=== PATIENT | female | born 1985 | race Caucasian/White ===

== ENCOUNTER 2018-10-09 01:32 | Observation (INO) | payer MEDICAID, OTHER ==
[2018-10-09 02:37] LABS: Hematocrit 40.1 % (30.3-42.9); Hemoglobin 13.8 gm/dl (10.1-14.3); Mean Corpuscular HGB Conc 34 % (30-34); Mean Corpuscular Volume 90 fl (79-97); Red Blood Count 4.49 M/mm3 (3.65-5.03); Red Cell Distribution Width 13.9 % (13.2-15.2)
[2018-10-09 02:38] LABS: Basophils % (Auto) 0.1 % (0.0-1.8); Lymphocytes # (Auto) 0.9 K/mm3 (1.2-5.4); Lymphocytes % (Auto) 10.9 % (13.4-35.0); Monocytes # (Auto) 0.4 K/mm3 (0.0-0.8); Platelet Count 264 K/mm3 (140-440)
[2018-10-09 02:52] LABS: Bacteria,Urine 1+ /HPF (Negative); Bilirubin,Urine NEG (Negative); Blood,Urine NEG (Negative); Color,Urine Yellow (Yellow); Mucus,Urine 1+ /HPF; Protein,Urine <15 mg/dL mg/dL (Negative); Urobilinogen,Urine < 2.0 mg/dL (<2.0)
[2018-10-09 02:55] LABS: Alanine Aminotransferase 16 units/L (7-56); Albumin 4.7 g/dL (3.9-5); BUN/Creatinine Ratio 22; Blood Urea Nitrogen 11 mg/dL (7-17); Calcium 9.5 mg/dL (8.4-10.2); Hemolysis Index 5
[2018-10-09] MEDS ORDERED: NORCO 5/325 PO ONE (03:31)
[2018-10-09] MEDS ORDERED: NORCO 5/325 ONE (03:32)
[2018-10-09] MEDS ORDERED: ZOFRAN IV ONE (04:51)
[2018-10-09] MEDS ORDERED: NACL 0.9% 1000 ML 1,000 ML IV ONE (04:51)
[2018-10-09] MEDS ORDERED: ROCEPHIN/NS 1 GM/50 ML 1 GM/50 ML BAG IV ONE (04:52)
--- NOTE | 2018-10-09 07:34 | Cat Scan Report ---
CT abdomen pelvis wo con INDICATION / CLINICAL INFORMATION: abd pain. TECHNIQUE: All CT scans at this location are performed using CT dose reduction for ALARA by means of automated e xposure control. COMPARISON: None available. FINDINGS: No free fluid is seen in the abdomen. The liver, spleen, kidneys, pancreas, adrenal glands and great vessels are normal. In the pelvis, no free fluid is seen. No enlarged lymph nodes are identified. The bladder is normal. The appendix is not well visualized. No significant skeletal abnormalities identified. IMPRESSION: No acute findings. Negative CT abdomen and pelvis Signer Name: Krishna Smith MD FACElton Signed: 10/09/2018 7:30 AM Workstation Name: [email or web address]
--- NOTE | 2018-10-09 08:10 | Emergency Department Report ---
<ARNOLDO SANTILLAN - Last Filed: 10/09/18 11:05> ED Abdominal Pain HPI - General Chief Complaint: Abdominal Pain Stated Complaint: RIGHT SIDE PAIN Time Seen by Provider: 10/09/18 07:10 Source: patient Mode of arrival: Ambulatory Limitations: No Limitations - History of Present Illness Initial Comments: This is a 32-year-old female who presents to the emergency room with right sided abdominal pain that is radiating to right flank since yesterday around 1200. Past medical history of cholecystitis controlled with diet. Patient reports pain is sharp radiating pain that is intermittent. She also reported vomiting. Denies urinary frequency, urgency, dysuria, and diarrhea. MD Complaint: abdominal pain Onset/Timin -: days(s) Location: RLQ Radiation: R flank Migration to: no migration Severity: mild Severity scale (0 -10): 2 Quality: sharp Consistency: intermittent Improves With: nothing Worsens With: nothing Associated Symptoms: nausea, vomiting. denies: diarrhea, fever, chills, constipation, dysuria, hematemesis, hematochezia, melena, hematuria, anorexia, syncope Treatments Prior to Arrival: NSAIDs - Related Data LMP Date: 10/02/18 Home Medications Medication Instructions Recorded Confirmed Last Taken No Known Home Medications [No 10/09/18 10/09/18 Unknown Reported Home Medications] Allergies Allergy/AdvReac Type Severity Reaction Status Date / Time Penicillins Allergy Unknown Verified 02/14/16 01:56 ED Review of Systems Constitutional: denies: chills, fever Respiratory: denies: cough, shortness of breath, wheezing Cardiovascular: denies: chest pain, palpitations Gastrointestinal: abdominal pain, nausea, vomiting. denies: diarrhea Genitourinary: denies: urgency, dysuria, discharge Musculoskeletal: denies: back pain, joint swelling, arthralgia Skin: denies: rash, lesions Neurological: denies: headache, weakness, paresthesias Psychiatric: denies: anxiety, depression ED Past Medical Hx - Past Medical History Previous Medical History?: Yes Hx Hypertension: No Hx Congestive Heart Failure: No Hx Diabetes: No Hx Deep Vein Thrombosis: No Hx Renal Disease: Yes (hx cholecystitis) Hx Sickle Cell Disease: No Hx Seizures: No Hx Asthma: No Hx COPD: No Hx HIV: No Additional medical history: hx cholecystitis - Surgical History Past Surgical History?: No - Social History Smoking Status: Current Some Day Smoker - Medications Home Medications: Home Medications Medication Instructions Recorded Confirmed Last Taken Type No Known Home Medications [No 10/09/18 10/09/18 Unknown History Reported Home Medications] ED Physical Exam - General Limitations: No Limitations General appearance: alert, in no apparent distress - Respiratory Respiratory exam: Present: normal lung sounds bilaterally. Absent: respiratory distress - Cardiovascular Cardiovascular Exam: Present: regular rate, normal rhythm. Absent: systolic murmur, diastolic murmur, rubs, gallop - GI/Abdominal GI/Abdominal exam: Present: soft, tenderness (RLQ), normal bowel sounds. Absent: distended, guarding, rebound, rigid - Back Exam Back exam: Absent: CVA tenderness (R), CVA tenderness (L) - Neurological Exam Neurological exam: Present: alert, oriented X3 - Psychiatric Psychiatric exam: Present: normal affect, normal mood - Skin Skin exam: Present: warm, dry, intact, normal color. Absent: rash ED Course - Reevaluation(s) Reevaluation #1: 10/09/18 10:[address] Mathur who suggest consult hospitalist for admission. Obtained CT of Abdomen and pelvis with contrast with findings of possible acute cholecystitis. Paged Dr. Sheikh with general surgery for admission. 10/09/18 10:24 Reevaluation #2: 10/09/18 11:[address] Lopez who agreed to admission under Medical Surgical. Advised to order zosyn and Dilaudid. ED Medical Decision Making - Lab Data Result diagrams: 10/09/18 02:00 10/09/18 02:00 Lab Results 10/09/18 10/09/18 10/09/18 Range/Units 02:00 02:00 02:00 WBC 8.0 (4.5-11.0) K/mm3 RBC 4.49 (3.65-5.03) M/mm3 Hgb 13.8 (10.1-14.3) gm/dl Hct 40.1 (30.3-42.9) % MCV 90 (79-97) fl MCH 31 (28-32) pg MCHC 34 (30-34) % RDW 13.9 (13.2-15.2) % Plt Count 264 (140-440) K/mm3 Lymph % (Auto) 10.9 L (13.4-35.0) % [place] % (Auto) 5.0 (0.0-7.3) % Eos % (Auto) 0.0 (0.0-4.3) % Baso % (Auto) 0.1 (0.0-1.8) % Lymph # 0.9 L (1.2-5.4) K/mm3 [place] # 0.4 (0.0-0.8) K/mm3 Eos # 0.0 (0.0-0.4) K/mm3 Baso # 0.0 (0.0-0.1) K/mm3 Seg Neutrophils % 84.0 H (40.0-70.0) % Seg Neutrophils # 6.8 (1.8-7.7) K/mm3 Sodium 137 (137-145) mmol/L Potassium 4.5 (3.6-5.0) mmol/L Chloride 101.9 (98-107) mmol/L Carbon Dioxide 27 (22-30) mmol/L Anion Gap 13 mmol/L BUN 11 (7-17) mg/dL Creatinine 0.5 L (0.7-1.2) mg/dL Estimated GFR > 60 ml/min BUN/Creatinine Ratio 22 % Glucose 132 H (65-100) mg/dL Calcium 9.5 (8.4-10.2) mg/dL Total Bilirubin 1.30 H (0.1-1.2) mg/dL AST 26 (5-40) units/L ALT 16 (7-56) units/L Alkaline Phosphatase 88 (35-129) units/L Total Protein 8.0 (6.3-8.2) g/dL Albumin 4.7 (3.9-5) g/dL Albumin/Globulin Ratio 1.4 % Lipase 1335 H (13-60) units/L HCG, Qual Negative (Negative) Urine Color (Yellow) Urine Turbidity (Clear) Urine pH (5.0-7.0) Ur Specific [place] (1.003-1.030) Urine Protein (Negative) mg/dL Urine Glucose (UA) (Negative) mg/dL Urine Ketones (Negative) mg/dL Urine Blood (Negative) Urine Nitrite (Negative) Urine Bilirubin (Negative) Urine Urobilinogen (<2.0) mg/dL Ur Leukocyte Esterase (Negative) Urine WBC (Auto) (0.0-6.0) /HPF Urine RBC (Auto) (0.0-6.0) /HPF U Epithel Cells (Auto) (0-13.0) /HPF Urine Bacteria (Auto) (Negative) /HPF Urine Mucus /HPF 10/09/18 Range/Units Unknown WBC (4.5-11.0) K/mm3 RBC (3.65-5.03) M/mm3 Hgb (10.1-14.3) gm/dl Hct (30.3-42.9) % MCV (79-97) fl MCH (28-32) pg MCHC (30-34) % RDW (13.2-15.2) % Plt Count (140-440) K/mm3 Lymph % (Auto) (13.4-35.0) % [place] % (Auto) (0.0-7.3) % Eos % (Auto) (0.0-4.3) % Baso % (Auto) (0.0-1.8) % Lymph # (1.2-5.4) K/mm3 [place] # (0.0-0.8) K/mm3 Eos # (0.0-0.4) K/mm3 Baso # (0.0-0.1) K/mm3 Seg Neutrophils % (40.0-70.0) % Seg Neutrophils # (1.8-7.7) K/mm3 Sodium (137-145) mmol/L Potassium (3.6-5.0) mmol/L Chloride (98-107) mmol/L Carbon Dioxide (22-30) mmol/L Anion Gap mmol/L BUN (7-17) mg/dL Creatinine (0.7-1.2) mg/dL Estimated GFR ml/min BUN/Creatinine Ratio % Glucose (65-100) mg/dL Calcium (8.4-10.2) mg/dL Total Bilirubin (0.1-1.2) mg/dL AST (5-40) units/L ALT (7-56) units/L Alkaline Phosphatase (35-129) units/L Total Protein (6.3-8.2) g/dL Albumin (3.9-5) g/dL Albumin/Globulin Ratio % Lipase (13-60) units/L HCG, Qual (Negative) Urine Color Yellow (Yellow) Urine Turbidity Slightly-cloudy (Clear) Urine pH 6.0 (5.0-7.0) Ur Specific [place] 1.028 (1.003-1.030) Urine Protein <15 mg/dl (Negative) mg/dL Urine Glucose (UA) Neg (Negative) mg/dL Urine Ketones 80 (Negative) mg/dL Urine Blood Neg (Negative) Urine Nitrite Neg (Negative) Urine Bilirubin Neg (Negative) Urine Urobilinogen < 2.0 (<2.0) mg/dL Ur Leukocyte Esterase Lg (Negative) Urine WBC (Auto) 19.0 H (0.0-6.0) /HPF Urine RBC (Auto) 3.0 (0.0-6.0) /HPF U Epithel Cells (Auto) 6.0 (0-13.0) /HPF Urine Bacteria (Auto) 1+ (Negative) /HPF Urine Mucus 1+ /HPF - Radiology Data Radiology results: report reviewed CT abdomen pelvis wo con INDICATION / CLINICAL INFORMATION: abd pain. TECHNIQUE: All CT scans at this location are performed using CT dose reduction for [place] by means of automated exposure control. COMPARISON: None available. FINDINGS: No free fluid is seen in the abdomen. The liver, spleen, kidneys, pancreas, adrenal glands and great vessels are normal. In the pelvis, no free fluid is seen. No enlarged lymph nodes are identified. The bladder is normal. The appendix is not well visualized. No significant skeletal abnormalities identified. IMPRESSION: No acute findings. Negative CT abdomen and pelvis CT ABDOMEN AND PELVIS WITH CONTRAST HISTORY: Abdominal pain. COMPARISON: A same-day CT abdomen and pelvis without contrast TECHNIQUE: Routine abdominal and pelvic CT exam performed following intravenous contrast administration. All CT scans at this location are performed using CT dose reduction for ALARA by means of automated exposure control. CONTRAST: 100 mL Omnipaque 300. Consent was obtained prior to the administration of the contrast. FINDINGS: CT ABDOMEN: Lung Bases: Clear. Liver: Normal. Biliary: The gallbladder is distended with a 3 mm thick wall and moderate pericholecystic fluid. There is a questionable 6 mm radiopaque calculus near the neck of the gallbladder. Intrahepatic bile ducts are normal. However, the common bile duct measures 8 mm in the maame hepatis. No evidence of choledocholithiasis. Spleen: No significant abnormality. Unenlarged. Pancreas: Bulky pancreas with enlargement of the body and mild peripancreatic stranding. Mild peripancreatic fluid. No pancreatic pseudocyst or calcifications. The pancreatic duct is nondilated. Adrenals: Normal. Kidneys: Normal. Lymphatics: No lymphadenopathy. Vasculature: Normal. Bowel/Peritoneum: No significant abnormality. No free air. No free fluid. Normal appendix measuring [address] PELVIC: : Normal uterus and ovaries. A 1.7 cm dominant follicle of the right ovary. Mild physiologic free pelvic fluid. Osseous Structures: No significant abnormality. Additional Findings: None IMPRESSION: 1. Possible 6 mm gallbladder calculus and additional findings in the gallbladder suggesting possible acute cholecystitis. 2. Changes in the pancreas suggest acute pancreatitis with no complication. 3. No appendicitis. 4. Normal pelvis with a 1.7 cm dominant follicle of the right ovary. - Medical Decision Making This patient was seen by this provider. Obtained labs and CT of abdomen and pelvis. Lipase 1335 and bilirubin elevated. All of the labs are unremarkable. 1. Possible 6 mm gallbladder calculus and additional findings in the gallbladder suggesting possible acute cholecystitis. 2. Changes in the pancreas suggest acute pancreatitis with no complication. 3. No appendicitis. 4. Normal pelvis with a 1.7 cm dominant follicle of the right ovary. Dr. Sheikh from general surgery agreed to admit patient for surgery under general medicine. Spoke with Dr. Lopez who is in agreement with admission to Medical Surgial. ED Disposition Clinical Impression: Right sided abdominal pain, Right flank pain, Acute cholecystitis Vomiting alone Qualifiers: Vomiting type: unspecified Vomiting Intractability: non-intractable Qualified Code(s): R11.11 - Vomiting without nausea Disposition: -09 OP ADMIT IP TO THIS HOSP Is pt being admited?: Yes Condition: Stable <DOTTIE MATHUR - Last Filed: 10/09/18 15:46> ED Review of Systems ROS: Stated complaint: RIGHT SIDE PAIN Other details as noted in HPI ED Course Vital Signs 10/09/18 10/09/18 10/09/18 01:50 08:27 11:42 Temperature 98.4 F 98.4 F Pulse Rate 71 52 L 63 Respiratory 16 16 20 Rate Blood Pressure 121/70 100/47 107/55 [Left] O2 Sat by Pulse 100 100 100 Oximetry 10/09/18 13:00 Temperature Pulse Rate Respiratory 19 Rate Blood Pressure [Left] O2 Sat by Pulse 99 Oximetry - Reevaluation(s) Reevaluation #3: 10/09/18 11:49 Patient found to have pancreatitis, likely secondary to gallstone cholecystitis. Patient was presented to me after initial laboratory studies resulted, and noncontrast CT scan of the abdomen and pelvis resulted. A contrast-enhanced CT scan was ordered, and shows cholecystitis, and probable pancreatitis. Agree with plan for admission, pain control, antibiotics. Please note that ceftriaxone was ordered without specifically consulting me. I'll defer to the inpatient team to further manage inpatient antibiotics. Gen. surgery has been consulted. Laboratory studies, and imaging studies are reviewed. Nurse practitioner Marko to admit patient to the medical team. On my examination, there is no abdominal tenderness at this time. Explained significance of laboratory studies and CT scan findings to patient, who has verbalized understanding. She declines pain medication at this time. 10/09/18 11 ED Medical Decision Making - Lab Data Result diagrams: 10/09/18 02:00 10/09/18 02:00 - Radiology Data Radiology results: report reviewed, image reviewed Critical care attestation.: If time is entered above; I have spent that time in minutes in the direct care of this critically ill patient, excluding procedure time. ED Disposition Is pt being admited?: Yes
--- NOTE | 2018-10-09 10:03 | Cat Scan Report ---
CT ABDOMEN AND PELVIS WITH CONTRAST HISTORY: Abdominal pain. COMPARISON: A same-day CT abdomen and pelvis without contrast TECHNIQUE: Routine abdominal and pelvic CT exam performed following intravenous contrast administrat ion. All CT scans at this location are performed using CT dose reduction for ALARA by means of automated e xposure control. CONTRAST: 100 mL Omnipaque 300. Consent was obtained prior to the administration of the contrast. FINDINGS: CT ABDOMEN: Lung Bases: Clear. Liver: Normal. Biliary: The gallbladder is distended with a 3 mm thick wall and moderate pericholecystic fluid. Ther e is a questionable 6 mm radiopaque calculus near the neck of the gallbladder. Intrahepatic bile duct s are normal. However, the common bile duct measures 8 mm in the maame hepatis. No evidence of choled ocholithiasis. Spleen: No significant abnormality. Unenlarged. Pancreas: Bulky pancreas with enlargement of the body and mild peripancreatic stranding. Mild peripan creatic fluid. No pancreatic pseudocyst or calcifications. The pancreatic duct is nondilated. Adrenals: Normal. Kidneys: Normal. Lymphatics: No lymphadenopathy. Vasculature: Normal. Bowel/Peritoneum: No significant abnormality. No free air. No free fluid. Normal appendix measuring [address] PELVIC: : Normal uterus and ovaries. A 1.7 cm dominant follicle of the right ovary. Mild physiologic free p elvic fluid. Osseous Structures: No significant abnormality. Additional Findings: None IMPRESSION: 1. Possible 6 mm gallbladder calculus and additional findings in the gallbladder suggesting possible acute cholecystitis. 2. Changes in the pancreas suggest acute pancreatitis with no complication. 3. No appendicitis. 4. Normal pelvis with a 1.7 cm dominant follicle of the right ovary. Signer Name: Terry Matson MD Signed: 10/09/2018 9:59 AM Workstation Name: [id number]
[2018-10-09] MEDS ORDERED: LEVAQUIN PO ONE (10:56)
[2018-10-09] MEDS ORDERED: FLAGYL 500 MG/100 ML 500 MG/100 ML BAG IV ONE (10:56)
--- NOTE | 2018-10-09 11:38 | Consultation ---
History of Present Illness Consult date: 10/09/18 Reason for consult: gallstones Chief complaint: abdominal pain, n/v - History of present illness History of present illness: 32 yo F with hx of gallstones presents to ER with one day hx of RUQ abdominal pa in radiating to the back. She had pain like this 10 years ago and was told it was gallstones. She has since managed this with diet. Yesterday she had breakfast and soon after starting having abdominal pain. Sharp, severe. Associated with n/v. No f/c. Her pain is subsiding now. Past History Past Medical History: other (gallstones) Past Surgical History: No surgical history Social history: no significant social history Family history: no significant family history Medications and Allergies Allergies Allergy/AdvReac Type Severity Reaction Status Date / Time Penicillins Allergy Unknown Verified 02/14/16 01:56 Home Medications Medication Instructions Recorded Confirmed Last Taken Type Ibuprofen [Motrin 600 MG tab] 600 mg PO Q8H PRN #30 tablet 12/01/14 02/14/16 Unknown Rx Multivitamin/Iron/Folic Acid [One 1 each PO DAILY #60 tablet 12/01/14 02/14/16 02/13/16 Rx Daily Multivitamin-Iron Tb] Acetaminophen/Codeine [Tylenol #3] 1 tab PO Q4HR PRN #30 tablet 02/15/16 Unknown Rx Ibuprofen [Motrin 600 MG tab] 600 mg PO Q6H PRN #30 tablet 02/15/16 Unknown Rx Active Meds: Active Medications Sodium Chloride (Nacl 0.9% 1000 Ml) 1,000 mls @ 150 mls/hr IV DIRECT CHARU Review of Systems All systems: negative (10 pt ROS performed and negative except for that listed in HPI) Exam Vital Signs Temp Pulse Resp BP Pulse Ox 98.4 F 71 16 121/70 100 10/09/18 01:50 10/09/18 01:50 10/09/18 01:50 10/09/18 01:50 10/09/18 01:50 Narrative exam: Gen: AAOx3. NAD ENT: no scleral icterus or conjunctival pallor CV; s1, S2+ Resp: even and unlabored Abd: soft, ND, mild RUQ TTP. no r/r/g Ext: no c/c/e Results - Labs 10/09/18 02:00 10/09/18 02:00 Abnormal lab results 10/09/18 10/09/18 10/09/18 Range/Units 02:00 02:00 Unknown Lymph % (Auto) 10.9 L (13.4-35.0) % Lymph # 0.9 L (1.2-5.4) K/mm3 Seg Neutrophils % 84.0 H (40.0-70.0) % Creatinine 0.5 L (0.7-1.2) mg/dL Glucose 132 H (65-100) mg/dL Total Bilirubin 1.30 H (0.1-1.2) mg/dL Lipase 1335 H (13-60) units/L Urine WBC (Auto) 19.0 H (0.0-6.0) /HPF Diabetes panel 10/09/18 Range/Units 02:00 Sodium 137 (137-145) mmol/L Potassium 4.5 (3.6-5.0) mmol/L Chloride 101.9 (98-107) mmol/L Carbon Dioxide 27 (22-30) mmol/L BUN 11 (7-17) mg/dL Creatinine 0.5 L (0.7-1.2) mg/dL Glucose 132 H (65-100) mg/dL Calcium 9.5 (8.4-10.2) mg/dL AST 26 (5-40) units/L ALT 16 (7-56) units/L Alkaline Phosphatase 88 (35-129) units/L Total Protein 8.0 (6.3-8.2) g/dL Albumin 4.7 (3.9-5) g/dL Calcium panel 10/09/18 Range/Units 02:00 Calcium 9.5 (8.4-10.2) mg/dL Albumin 4.7 (3.9-5) g/dL Pituitary panel 10/09/18 Range/Units 02:00 Sodium 137 (137-145) mmol/L Potassium 4.5 (3.6-5.0) mmol/L Chloride 101.9 (98-107) mmol/L Carbon Dioxide 27 (22-30) mmol/L BUN 11 (7-17) mg/dL Creatinine 0.5 L (0.7-1.2) mg/dL Glucose 132 H (65-100) mg/dL Calcium 9.5 (8.4-10.2) mg/dL Adrenal panel 10/09/18 Range/Units 02:00 Sodium 137 (137-145) mmol/L Potassium 4.5 (3.6-5.0) mmol/L Chloride 101.9 (98-107) mmol/L Carbon Dioxide 27 (22-30) mmol/L BUN 11 (7-17) mg/dL Creatinine 0.5 L (0.7-1.2) mg/dL Glucose 132 H (65-100) mg/dL Calcium 9.5 (8.4-10.2) mg/dL Total Bilirubin 1.30 H (0.1-1.2) mg/dL AST 26 (5-40) units/L ALT 16 (7-56) units/L Alkaline Phosphatase 88 (35-129) units/L Total Protein 8.0 (6.3-8.2) g/dL Albumin 4.7 (3.9-5) g/dL - Imaging CT scan - abdomen: report reviewed, image reviewed CT scan - pelvis: report reviewed, image reviewed US - abdomen: report reviewed Assessment and Plan 32 yo F with 1. acute cholecystitis 2. dilated CBD 3. gallstone pancreatitis 4. hyperbilirubinemia CT scan A/p and RUQ u/s with acute cholecystitis with dilated CBD, pancreatitis Plan: Admit to hospitalist service 1. NPO 2. IVF - NS@150cc/hr 3. MRCP for dilated CBD, r/o choledocolithiasis 4. prn pain control 5. repeat LFTs, lipase in am 6. IV abx 7. Recommend cholecystectomy prior to discharge once lipase improves and w/u is complete. I explained test results and recommendations to the patient. She does not want to stay in the hospital because she has small children at home. I asked her to stay at least til tomorrow to recheck labs to ensure pancreatitis is getting better. I also spoke with her Tarik over telephone and explained plan to him at patient's request. Will follow up in am. Thank you, please call with questions
--- NOTE | 2018-10-09 11:39 | Ultrasound Report ---
LIMITED RUQ ABDOMINAL ULTRASOUND INDICATION: Right upper quadrant abdominal pain. COMPARISON: No relevant prior imaging study available. FINDINGS: Pancreas: Visualized portions show no significant abnormality. Abdominal Aorta: No significant abnormality. IVC: No significant abnormality. Liver: No significant abnormality. Normal hepatopedal blood flow in the main portal vein. Gallbladder: The gallbladder is borderline dilated. There is moderate sludge and a few shadowing gall stones within the gallbladder. There is moderate gallbladder wall thickening measuring 4.1 mm. Small pericholecystic fluid is also identified. Bile ducts: No significant abnormality. Common bile duct measures 7.5 mm. Right kidney: No significant abnormality visualized.. Free fluid: None. Additional Findings: None. IMPRESSION: Cholelithiasis with findings suggestive of acute cholecystitis. The common bile duct is mildly dilated measuring 7.5 mm. Choledocholithiasis cannot be excluded. Signer Name: Yefri Morel Jr, MD Signed: 10/09/2018 11:35 AM Workstation Name: [id number]
--- NOTE | 2018-10-09 14:31 | Magnetic Resonance Report ---
MR ABDOMEN MRCP HISTORY: Gallstone pancreatitis, dilated common bile duct on ultrasound, abdominal pain on right side . TECHNIQUE: Coronal T2 images. Axial T2 fat-sat images. Thin and thick slab MRCP images. Radial MRCP i mages. Reconstructions of the biliary tree. COMPARISON: CT abdomen pelvis with contrast and right upper quadrant ultrasound performed 10/09/2018. FINDINGS: The sequences are slightly limited by patient motion artifact. The gallbladder is borderline dilated and contains multiple small gallstones. One of the small stones appears to be within the cystic duct. There is moderate gallbladder wall edema/thickening measuring up to 6 mm on MR. The MRCP images demonstrate an abrupt transition in the distal common bile duct con sistent with mildly obstructing sludge or nonvisualized stone. The CBD measures 6 mm on the MRCP imag es. No intrahepatic biliary dilatation is appreciated. Signal characteristics of the liver, pancreas, spleen, kidneys, adrenal glands, aorta and visualized bowel loops are within normal limits. No evidence for ascites, focal inflammation or bulky adenopathy . IMPRESSION: Cholelithiasis. Findings suspicious for acute cholecystitis. There is a abrupt change in caliber of the distal common bile duct consistent with choledocholithiasi s. See above. Signer Name: Yefri Morel Jr, MD Signed: 10/09/2018 2:26 PM Workstation Name: [id number]
[2018-10-09] MEDS: NACL 0.9% 1000 ML 1,000 ML IV SCH ×2 (14:45→23:02)
--- NOTE | 2018-10-09 17:22 | Event Note ---
Date: 10/09/18 MRCP positive for choledocolithiasis - consult placed to GI
[2018-10-09] MEDS ORDERED: DILAUDID IV PRN (21:00)
[2018-10-09] MEDS ORDERED: SODIUM CHLORIDE FLUSH SYRINGE 10 ML IV PRN (21:00)
[2018-10-09] MEDS ORDERED: ZOFRAN IV PRN (21:00)
[2018-10-09] MEDS ORDERED: TYLENOL PO PRN (21:00)
--- NOTE | 2018-10-09 21:00 | History and Physical Report ---
History of Present Illness Date of examination: 10/09/18 Date of admission: 10/09/18 11:11 Chief complaint: Ruq pain for 1 day History of present illness: 32-year-old female who presents to the emergency room with right sided abdominal pain that is radiating to right flank since yesterday around 1200. Past medical history of cholecystitis controlled with diet. Patient reports pain is sharp radiating pain that is intermittent. Pain is 10/10. She also re ported vomiting. Denies urinary frequency, urgency, dysuria, and diarrhea.No fever or chills Past History Past Medical History: other (gallstones) Past Surgical History: No surgical history Social history: no significant social history Family history: no significant family history Medications and Allergies Allergies Allergy/AdvReac Type Severity Reaction Status Date / Time Penicillins Allergy Unknown Verified 02/14/16 01:56 Home Medications Medication Instructions Recorded Confirmed Last Taken Type No Known Home Medications [No 10/09/18 10/09/18 Unknown History Reported Home Medications] Active Meds: Active Medications Sodium Chloride (Nacl 0.9% 1000 Ml) 1,000 mls @ 150 mls/hr IV DIRECT CHARU Last Admin: 10/09/18 14:45 Dose: 150 mls/hr Documented by: Review of Systems All systems: negative Gastrointestinal: abdominal pain (RUQ for 1 day), nausea, vomiting (x2) Exam - Constitutional Vitals: Temp Pulse Resp BP Pulse Ox 98.1 F 53 L 14 92/54 100 10/09/18 17:07 10/09/18 17:07 10/09/18 17:07 10/09/18 17:07 10/09/18 17:07 General appearance: Present: no acute distress, well-nourished - EENT Eyes: Present: PERRL ENT: hearing intact, clear oral mucosa - Neck Neck: Present: supple, normal ROM - Respiratory Respiratory effort: normal Respiratory: bilateral: CTA - Cardiovascular Heart rate: 76 Rhythm: regular Heart Sounds: Present: S1 & S2. Absent: rub, click - Extremities Extremities: pulses symmetrical, No edema Peripheral Pulses: within normal limits - Abdominal General gastrointestinal: Present: soft, tender, non-distended, normal bowel sounds Localized gastrointestinal: tender: RUQ, guarding: RUQ Female genitourinary: Present: normal - Rectal Rectal Exam: deferred - Integumentary Integumentary: Present: clear, warm, dry - Musculoskeletal Musculoskeletal: gait normal, strength equal bilaterally - Psychiatric Psychiatric: appropriate mood/affect, intact judgment & insight - Neurologic Neurologic: CNII-XII intact, moves all extremities - Allied Health Allied health notes reviewed: nursing Results - Labs CBC & Chem 7: 10/09/18 02:00 10/09/18 02:00 Labs: Laboratory Last Values WBC 8.0 K/mm3 (4.5-11.0) 10/09/18 02:00 RBC 4.49 M/mm3 (3.65-5.03) 10/09/18 02:00 Hgb 13.8 gm/dl (10.1-14.3) 10/09/18 02:00 Hct 40.1 % (30.3-42.9) 10/09/18 02:00 MCV 90 fl (79-97) 10/09/18 02:00 MCH 31 pg (28-32) 10/09/18 02:00 MCHC 34 % (30-34) 10/09/18 02:00 RDW 13.9 % (13.2-15.2) 10/09/18 02:00 Plt Count 264 K/mm3 (140-440) 10/09/18 02:00 Lymph % (Auto) 10.9 % (13.4-35.0) L 10/09/18 02:00 [place] % (Auto) 5.0 % (0.0-7.3) 10/09/18 02:00 Eos % (Auto) 0.0 % (0.0-4.3) 10/09/18 02:00 Baso % (Auto) 0.1 % (0.0-1.8) 10/09/18 02:00 Lymph # 0.9 K/mm3 (1.2-5.4) L 10/09/18 02:00 [place] # 0.4 K/mm3 (0.0-0.8) 10/09/18 02:00 Eos # 0.0 K/mm3 (0.0-0.4) 10/09/18 02:00 Baso # 0.0 K/mm3 (0.0-0.1) 10/09/18 02:00 Seg Neutrophils % 84.0 % (40.0-70.0) H 10/09/18 02:00 Seg Neutrophils # 6.8 K/mm3 (1.8-7.7) 10/09/18 02:00 Sodium 137 mmol/L (137-145) 10/09/18 02:00 Potassium 4.5 mmol/L (3.6-5.0) 10/09/18 02:00 Chloride 101.9 mmol/L (98-107) 10/09/18 02:00 Carbon Dioxide 27 mmol/L (22-30) 10/09/18 02:00 13 mmol/L 10/09/18 02:00 BUN 11 mg/dL (7-17) 10/09/18 02:00 0.5 mg/dL (0.7-1.2) L 10/09/18 02:00 Estimated GFR > 60 ml/min 10/09/18 02:00 22 % 10/09/18 02:00 Glucose 132 mg/dL (65-100) H 10/09/18 02:00 Calcium 9.5 mg/dL (8.4-10.2) 10/09/18 02:00 1.30 mg/dL (0.1-1.2) H 10/09/18 02:00 AST 26 units/L (5-40) 10/09/18 02:00 ALT 16 units/L (7-56) 10/09/18 02:00 88 units/L (35-129) 10/09/18 02:00 8.0 g/dL (6.3-8.2) 10/09/18 02:00 4.7 g/dL (3.9-5) 10/09/18 02:00 1.4 % 10/09/18 02:00 1335 units/L (13-60) H 10/09/18 02:00 HCG, Qual Negative (Negative) 10/09/18 02:00 Yellow (Yellow) 10/09/18 Unknown Slightly-cloudy (Clear) 10/09/18 Unknown 6.0 (5.0-7.0) 10/09/18 Unknown Ur Specific [place] 1.028 (1.003-1.030) 10/09/18 Unknown <15 mg/dl mg/dL (Negative) 10/09/18 Unknown Neg mg/dL (Negative) 10/09/18 Unknown 80 mg/dL (Negative) 10/09/18 Unknown Neg (Negative) 10/09/18 Unknown Neg (Negative) 10/09/18 Unknown Neg (Negative) 10/09/18 Unknown < 2.0 mg/dL (<2.0) 10/09/18 Unknown Ur Leukocyte Esterase Lg (Negative) 10/09/18 Unknown 19.0 /HPF (0.0-6.0) H 10/09/18 Unknown 3.0 /HPF (0.0-6.0) 10/09/18 Unknown U Epithel Cells (Auto) 6.0 /HPF (0-13.0) 10/09/18 Unknown 1+ /HPF (Negative) 10/09/18 Unknown 1+ /HPF 10/09/18 Unknown - Imaging and Cardiology CT scan - abdomen: report reviewed Imaging and Cardiology: CT abd IMPRESSION: 1. Possible 6 mm gallbladder calculus and additional findings in the gallbladder suggesting possible acute cholecystitis. 2. Changes in the pancreas suggest acute pancreatitis with no complication. 3. No appendicitis. 4. Normal pelvis with a 1.7 cm dominant follicle of the right ovary. Signer Name: Terry Matson MD MRCP IMPRESSION: Cholelithiasis. Findings suspicious for acute cholecystitis. There is a abrupt change in caliber of the distal common bile duct consistent with choledocholithiasis. See above. Assessment and Plan Advance Directives: Yes (Full code) VTE prophylaxis?: Mechanical Plan of care discussed with patient/family: Yes - Patient Problems (1) Acute cholecystitis Current Visit: Yes Status: Acute Plan to address problem: Surgery consulted Empiric abx with IV Zosyn (2) Choledocholithiasis Current Visit: Yes Status: Acute Plan to address problem: On MRCP GI consulted (3) DVT prophylaxis Current Visit: Yes Status: Acute Plan to address problem: On Scd's and GI prophylaxis
[2018-10-09] MEDS: SODIUM CHLORIDE FLUSH SYRINGE 10 ML IV SCH (22:59)
[2018-10-09] MEDS: PEPCID IV SCH (22:59)
[2018-10-09] MEDS: ZOSYN/NS 4.5GM/100ML 4.5 GM/100 ML VIAL IV SCH (23:27)
[2018-10-10] MEDS: NACL 0.9% 1000 ML 1,000 ML IV SCH ×2 (05:43→14:04)
[2018-10-10] MEDS: ZOSYN/NS 4.5GM/100ML 4.5 GM/100 ML VIAL IV SCH ×2 (06:37→14:04)
[2018-10-10] MEDS: PEPCID IV SCH ×2 (09:11→22:10)
[2018-10-10] MEDS: SODIUM CHLORIDE FLUSH SYRINGE 10 ML IV SCH ×2 (09:12→22:10)
[2018-10-10 09:32] LABS: Basophils % (Auto) 0.2 % (0.0-1.8); Hematocrit 36.8 % (30.3-42.9); Hemoglobin 12.2 gm/dl (10.1-14.3); Lymphocytes # (Auto) 0.6 K/mm3 (1.2-5.4); Mean Corpuscular HGB Conc 33 % (30-34); Mean Corpuscular Volume 92 fl (79-97); Monocytes # (Auto) 0.2 K/mm3 (0.0-0.8); Monocytes % (Auto) 2.1 % (0.0-7.3); Platelet Count 203 K/mm3 (140-440); Red Blood Count 4.01 M/mm3 (3.65-5.03); Red Cell Distribution Width 14.6 % (13.2-15.2)
[2018-10-10 10:08] LABS: Alanine Aminotransferase 9 units/L (7-56); Albumin 3.6 g/dL (3.9-5); BUN/Creatinine Ratio 25; Blood Urea Nitrogen 15 mg/dL (7-17); Calcium 8.2 mg/dL (8.4-10.2); Hemolysis Index 45
--- NOTE | 2018-10-10 11:18 | Consultation ---
History of Present Illness - Reason for Consult Consult date: 10/10/18 Pancreatitis Requesting physician: BRIANNA RINCON - History of Present Illness Mrs. Gilman is a 32-year-old woman who presented yesterday to the emergency room with a 1 day history of right upper quadrant pain radiating around to the back. She was found to have pancreatitis with elevated lipase. Her liver enzymes were normal. On the day of admission, by 3 AM, her pain had resolved and she has been doing well since then. She had an ultrasound CT and an MRCP done. These showed gallstones, and a dilated common bile duct. The MRCP showed possible sharp cutoff of the common bile duct suggesting possible stone. GI consultation is therefore obtained. Meds reviewed. Past History Past Medical History: other (gallstones dx'd 10 yrs ago with symptoms then, none since) Past Surgical History: No surgical history Social history: no significant social history Family history: no significant family history Medications and Allergies Allergies Allergy/AdvReac Type Severity Reaction Status Date / Time Penicillins Allergy Unknown Verified 02/14/16 01:56 Home Medications Medication Instructions Recorded Confirmed Last Taken Type No Known Home Medications [No 10/09/18 10/09/18 Unknown History Reported Home Medications] Active Meds: Active Medications Acetaminophen (Tylenol) 650 mg PO Q4H PRN PRN Reason: Pain MILD(1-3)/Fever >100.5/SHARIF Famotidine (Pepcid) 20 mg IV BID CHARU Last Admin: 10/10/18 09:11 Dose: 20 mg Documented by: Hydromorphone HCl (Dilaudid) 0.5 mg IV Q3H PRN PRN Reason: Pain , Severe (7-10) Sodium Chloride (Nacl 0.9% 1000 Ml) 1,000 mls @ 150 mls/hr IV DIRECT CHARU Last Admin: 10/10/18 05:43 Dose: 150 mls/hr Documented by: Piperacillin Sod/Tazobactam Sod (Zosyn/Ns 4.5gm/100ml) 4.5 gm in 100 mls @ 200 mls/hr IV Q8HR CHARU; Protocol Last Admin: 10/10/18 06:37 Dose: 200 mls/hr Documented by: Ondansetron HCl (Zofran) 4 mg IV Q8H PRN PRN Reason: Nausea And Vomiting Sodium Chloride (Sodium Chloride Flush Syringe 10 Ml) 10 ml IV BID HCARU Last Admin: 10/10/18 09:12 Dose: 10 ml Documented by: Sodium Chloride (Sodium Chloride Flush Syringe 10 Ml) 10 ml IV PRN PRN PRN Reason: LINE FLUSH Review of Systems All systems: negative (as noted) Exam - Constitutional Vitals: Temp Pulse Resp BP Pulse Ox 97.8 F 82 16 101/55 97 10/10/18 05:31 10/10/18 05:31 10/10/18 05:31 10/10/18 05:31 10/10/18 05:31 General appearance: Present: no acute distress - EENT Eyes: Present: PERRL, EOM intact ENT: hearing intact - Respiratory Respiratory effort: normal Respiratory: bilateral: CTA - Cardiovascular Rhythm: regular Heart Sounds: Present: S1 & S2 - Extremities Extremities: No edema - Abdominal General gastrointestinal: Present: soft, non-tender, normal bowel sounds Results - Labs CBC & Chem 7: 10/10/18 08:09 10/10/18 08:09 Labs: Abnormal lab results 10/10/18 10/10/18 Range/Units 08:09 08:09 Lymph % (Auto) 8.0 L (13.4-35.0) % Lymph # 0.6 L (1.2-5.4) K/mm3 Seg Neutrophils % 89.7 H (40.0-70.0) % Chloride 108.2 H (98-107) mmol/L Carbon Dioxide 19 L D (22-30) mmol/L Creatinine 0.6 L (0.7-1.2) mg/dL Glucose 55 L (65-100) mg/dL Calcium 8.2 L (8.4-10.2) mg/dL Total Bilirubin 1.40 H (0.1-1.2) mg/dL Total Protein 6.2 L D (6.3-8.2) g/dL Albumin 3.6 L (3.9-5) g/dL - Imaging and Cardiology CT scan - abdomen: report reviewed, image reviewed US - abdomen: report reviewed, image reviewed MRI - abdomen: report reviewed, image reviewed Assessment and Plan 1. Pancreatitismost consistent with gallstone pancreatitis. CBD stone has likely already passed given normal liver enzymes. Lipase has also normalized today and patient is asymptomatic. MRCP reviewed and not convincing for stone. Cutoff may well represent sphincter of Oddi spasm. - Discussed with Dr. Rincon - Would proceed with cholecystectomy with intraoperative cholangiogram. - We'll do post cholecystectomy ERCP if warranted. We will sign off. Please call if needed.
--- NOTE | 2018-10-10 14:18 | Progress Note ---
Assessment and Plan Assessment and plan: Acute gallstone cholecystitis with choledocholithiasis -On NPO, IVF and PRN IV narcotics -IV antibiotics changed to levofloxacin and Flagyl due to penicillin allergy -Surgery planning for cholecystectomy with intraoperative cholangiogram in a.m. -GI to do post cholecystectomy ERCP if warranted. Acute gallstone pancreatitis -Continue IV fluids and when necessary IV narcotics -We'll monitor clinically Hyperbilirubinemia -Likely due to above, will monitor level DVT prophylaxis with SCD Disposition: Discharge planning post pending procedures History Interval history: Patient seen today. She has no new complaints, she reports feeling better. She denies abdominal pain, nausea or vomiting. Hospitalist Physical - Constitutional Vitals: Temp Pulse Resp BP Pulse Ox 97.7 F 62 18 84/39 100 10/10/18 12:14 10/10/18 12:14 10/10/18 12:14 10/10/18 12:14 10/10/18 12:14 General appearance: Present: no acute distress, well-nourished - EENT Eyes: Present: PERRL, EOM intact ENT: hearing intact, clear oral mucosa - Neck Neck: Present: supple - Respiratory Respiratory effort: normal Respiratory: bilateral: CTA - Cardiovascular Rhythm: regular Heart Sounds: Present: S1 & S2 - Extremities Extremities: No edema - Abdominal General gastrointestinal: soft, non-tender, non-distended, normal bowel sounds - Integumentary Integumentary: Present: clear, warm, dry - Psychiatric Psychiatric: appropriate mood/affect - Neurologic Neurologic: CNII-XII intact Results - Labs CBC & Chem 7: 10/10/18 08:09 10/10/18 08:09 Labs: Laboratory Last Values WBC 7.7 K/mm3 (4.5-11.0) 10/10/18 08:09 RBC 4.01 M/mm3 (3.65-5.03) 10/10/18 08:09 Hgb 12.2 gm/dl (10.1-14.3) 10/10/18 08:09 Hct 36.8 % (30.3-42.9) 10/10/18 08:09 MCV 92 fl (79-97) 10/10/18 08:09 MCH 30 pg (28-32) 10/10/18 08:09 MCHC 33 % (30-34) 10/10/18 08:09 RDW 14.6 % (13.2-15.2) 10/10/18 08:09 Plt Count 203 K/mm3 (140-440) 10/10/18 08:09 Lymph % (Auto) 8.0 % (13.4-35.0) L 10/10/18 08:09 [place] % (Auto) 2.1 % (0.0-7.3) 10/10/18 08:09 Eos % (Auto) 0.0 % (0.0-4.3) 10/10/18 08:09 Baso % (Auto) 0.2 % (0.0-1.8) 10/10/18 08:09 Lymph # 0.6 K/mm3 (1.2-5.4) L 10/10/18 08:09 [place] # 0.2 K/mm3 (0.0-0.8) 10/10/18 08:09 Eos # 0.0 K/mm3 (0.0-0.4) 10/10/18 08:09 Baso # 0.0 K/mm3 (0.0-0.1) 10/10/18 08:09 Seg Neutrophils % 89.7 % (40.0-70.0) H 10/10/18 08:09 Seg Neutrophils # 6.9 K/mm3 (1.8-7.7) 10/10/18 08:09 Sodium 140 mmol/L (137-145) 10/10/18 08:09 Potassium 4.8 mmol/L (3.6-5.0) 10/10/18 08:09 Chloride 108.2 mmol/L (98-107) H 10/10/18 08:09 Carbon Dioxide 19 mmol/L (22-30) L D 10/10/18 08:09 18 mmol/L 10/10/18 08:09 BUN 15 mg/dL (7-17) 10/10/18 08:09 0.6 mg/dL (0.7-1.2) L 10/10/18 08:09 Estimated GFR > 60 ml/min 10/10/18 08:09 25 % 10/10/18 08:09 Glucose 55 mg/dL (65-100) L 10/10/18 08:09 Calcium 8.2 mg/dL (8.4-10.2) L 10/10/18 08:09 1.40 mg/dL (0.1-1.2) H 10/10/18 08:09 AST 17 units/L (5-40) 10/10/18 08:09 ALT 9 units/L (7-56) 10/10/18 08:09 70 units/L (35-129) 10/10/18 08:09 6.2 g/dL (6.3-8.2) L D 10/10/18 08:09 3.6 g/dL (3.9-5) L 10/10/18 08:09 1.4 % 10/10/18 08:09 54 units/L (13-60) 10/10/18 08:09 HCG, Qual Negative (Negative) 10/09/18 02:00 Yellow (Yellow) 10/09/18 Unknown Slightly-cloudy (Clear) 10/09/18 Unknown 6.0 (5.0-7.0) 10/09/18 Unknown Ur Specific [place] 1.028 (1.003-1.030) 10/09/18 Unknown <15 mg/dl mg/dL (Negative) 10/09/18 Unknown Neg mg/dL (Negative) 10/09/18 Unknown 80 mg/dL (Negative) 10/09/18 Unknown Neg (Negative) 10/09/18 Unknown Neg (Negative) 10/09/18 Unknown Neg (Negative) 10/09/18 Unknown < 2.0 mg/dL (<2.0) 10/09/18 Unknown Ur Leukocyte Esterase Lg (Negative) 10/09/18 Unknown 19.0 /HPF (0.0-6.0) H 10/09/18 Unknown 3.0 /HPF (0.0-6.0) 10/09/18 Unknown U Epithel Cells (Auto) 6.0 /HPF (0-13.0) 10/09/18 Unknown 1+ /HPF (Negative) 10/09/18 Unknown 1+ /HPF 10/09/18 Unknown Active Medications - Current Medications Current Medications: Generic Name Dose Route Start Last Admin Trade Name Freq PRN Reason Stop Dose Admin Acetaminophen 650 mg 10/09/18 21:00 Tylenol PO Q4H PRN Pain MILD(1-3)/Fever >100.5/SHARIF Famotidine 20 mg 10/09/18 22:00 10/10/18 09:11 Pepcid IV 20 mg BID CHAUR Administration Hydromorphone HCl 0.5 mg 10/09/18 21:00 Dilaudid IV Q3H PRN Pain , Severe (7-10) Sodium Chloride 1,000 mls @ 150 mls/hr 10/09/18 11:00 10/10/18 14:04 Nacl 0.9% 1000 Ml IV 150 mls/hr DIRECT CHARU Administration Ondansetron HCl 4 mg 10/09/18 21:00 Zofran IV Q8H PRN Nausea And Vomiting Sodium Chloride 10 ml 10/09/18 22:00 10/10/18 09:12 Sodium Chloride Flush Syringe 10 Ml IV 10 ml BID CHARU Administration Sodium Chloride 10 ml 10/09/18 21:00 Sodium Chloride Flush Syringe 10 Ml IV PRN PRN LINE FLUSH
--- NOTE | 2018-10-10 14:19 | Progress Note ---
Assessment and Plan 32 yo F with 1. acute cholecystitis 2. dilated CBD 3. gallstone pancreatitis 4. hyperbilirubinemia CT scan A/p and RUQ u/s with acute cholecystitis with dilated CBD, pancreatitis MRCP - abrupt transition in caliber of CBD, choledocolithiasis Plan: 1. OK to have clear liquids, NPO p MN tonight 2. IVF - will change to maintenance 3. Gi consult appreciated and discussed case with Dr. Jacobsen. Labs have rapidly improved and patient without pain. NO ERCP planned. 4. prn pain control 5. repeat LFTs, lipase in am 6. IV abx 7. Patient added on to OR for robotic assisted cholecystectomy in am 10/11/18. Will also perform cholangiogram to ensure no CBD obstruction. I discussed all risks, benefits, alternatives to surgery with the patient and her Tarik over the telephone. I explained that we will repeat labs in am. If labs still improving, we will move forward with cholecystectomy. If cholecystectomy is uneventful and cholangiogram negative, she may be able to be discharged after surgery. However, if the cholangiogram is positive, she will need to stay in the hospital for an additional procedure. I discussed this with both of them in detail. They understands. Consent obtained from patient. Thank you, please call with questions Subjective Date of service: 10/10/18 Narrative: Pt seen and examined. No complaints. No n/v, f/c, abd pain Objective Vital Signs - 12hr 10/10/18 10/10/18 05:31 12:14 Temperature 97.8 F 97.7 F Pulse Rate 82 62 Respiratory 16 18 Rate Blood Pressure 101/55 84/39 O2 Sat by Pulse 97 100 Oximetry - General physical appearance Narrative Exam: Gen: AAOx3. NAD CV: S1, S2+ resp; even and unlabored Abd: soft, NT, ND Ext: no c/c/e - Labs 10/10/18 08:09 10/10/18 08:09 Diabetes panel 10/10/18 Range/Units 08:09 Sodium 140 (137-145) mmol/L Potassium 4.8 (3.6-5.0) mmol/L Chloride 108.2 H (98-107) mmol/L Carbon Dioxide 19 L D (22-30) mmol/L BUN 15 (7-17) mg/dL Creatinine 0.6 L (0.7-1.2) mg/dL Glucose 55 L (65-100) mg/dL Calcium 8.2 L (8.4-10.2) mg/dL AST 17 (5-40) units/L ALT 9 (7-56) units/L Alkaline Phosphatase 70 (35-129) units/L Total Protein 6.2 L D (6.3-8.2) g/dL Albumin 3.6 L (3.9-5) g/dL Calcium panel 10/10/18 Range/Units 08:09 Calcium 8.2 L (8.4-10.2) mg/dL Albumin 3.6 L (3.9-5) g/dL Pituitary panel 10/10/18 Range/Units 08:09 Sodium 140 (137-145) mmol/L Potassium 4.8 (3.6-5.0) mmol/L Chloride 108.2 H (98-107) mmol/L Carbon Dioxide 19 L D (22-30) mmol/L BUN 15 (7-17) mg/dL Creatinine 0.6 L (0.7-1.2) mg/dL Glucose 55 L (65-100) mg/dL Calcium 8.2 L (8.4-10.2) mg/dL Adrenal panel 10/10/18 Range/Units 08:09 Sodium 140 (137-145) mmol/L Potassium 4.8 (3.6-5.0) mmol/L Chloride 108.2 H (98-107) mmol/L Carbon Dioxide 19 L D (22-30) mmol/L BUN 15 (7-17) mg/dL Creatinine 0.6 L (0.7-1.2) mg/dL Glucose 55 L (65-100) mg/dL Calcium 8.2 L (8.4-10.2) mg/dL Total Bilirubin 1.40 H (0.1-1.2) mg/dL AST 17 (5-40) units/L ALT 9 (7-56) units/L Alkaline Phosphatase 70 (35-129) units/L Total Protein 6.2 L D (6.3-8.2) g/dL Albumin 3.6 L (3.9-5) g/dL
[2018-10-10] MEDS: LEVAQUIN 750MG/150ML 750 MG/150 ML BAG IV SCH (14:48)
[2018-10-10] MEDS: FLAGYL 500 MG/100 ML 500 MG/100 ML BAG IV SCH ×2 (14:49→22:10)
[2018-10-11] MEDS: NACL 0.9% 1000 ML 1,000 ML IV SCH ×2 (01:21→09:53)
[2018-10-11] MEDS: FLAGYL 500 MG/100 ML 500 MG/100 ML BAG IV SCH ×2 (05:41→16:58)
[2018-10-11 06:31] LABS: Alanine Aminotransferase 8 units/L (7-56); Albumin 3.5 g/dL (3.9-5); BUN/Creatinine Ratio 10; Bilirubin,Direct 0.2 mg/dL (0-0.2); Blood Urea Nitrogen 5 mg/dL (7-17); Calcium 8.6 mg/dL (8.4-10.2); Hemolysis Index 2
--- NOTE | 2018-10-11 09:40 | Progress Note ---
Assessment and Plan Assessment and plan: Acute gallstone cholecystitis with choledocholithiasis, stable -On NPO, IVF and PRN IV narcotics -Cont IV antibiotics with levofloxacin and Flagyl due to penicillin allergy -For cholecystectomy with intraoperative cholangiogram today -GI to do post cholecystectomy ERCP if warranted. -Surgery and GI following Acute gallstone pancreatitis, improving -Continue IV fluids and when necessary IV narcotics -Will cont to monitor clinically. Lipase level trended down Hyperbilirubinemia -Likely due to above, level trended down DVT prophylaxis with SCD Disposition: Discharge planning post post surgery History Interval history: Patient seen today. She has no new complaints. She denies abdominal pain, nausea or vomiting. Hospitalist Physical - Constitutional Vitals: Temp Pulse Resp BP Pulse Ox 98.4 F 62 18 107/49 100 10/11/18 05:52 10/11/18 05:52 10/11/18 05:52 10/11/18 05:52 10/11/18 05:52 General appearance: Present: no acute distress, well-nourished - EENT Eyes: Present: PERRL, EOM intact ENT: hearing intact, clear oral mucosa - Neck Neck: Present: supple - Respiratory Respiratory effort: normal Respiratory: bilateral: CTA - Cardiovascular Rhythm: regular Heart Sounds: Present: S1 & S2 - Extremities Extremities: No edema - Abdominal General gastrointestinal: soft, non-tender, non-distended, normal bowel sounds - Integumentary Integumentary: Present: clear, warm, dry - Psychiatric Psychiatric: appropriate mood/affect - Neurologic Neurologic: CNII-XII intact Results - Labs CBC & Chem 7: 10/10/18 08:09 10/11/18 05:18 Labs: Laboratory Last Values WBC 7.7 K/mm3 (4.5-11.0) 10/10/18 08:09 RBC 4.01 M/mm3 (3.65-5.03) 10/10/18 08:09 Hgb 12.2 gm/dl (10.1-14.3) 10/10/18 08:09 Hct 36.8 % (30.3-42.9) 10/10/18 08:09 MCV 92 fl (79-97) 10/10/18 08:09 MCH 30 pg (28-32) 10/10/18 08:09 MCHC 33 % (30-34) 10/10/18 08:09 RDW 14.6 % (13.2-15.2) 10/10/18 08:09 Plt Count 203 K/mm3 (140-440) 10/10/18 08:09 Lymph % (Auto) 8.0 % (13.4-35.0) L 10/10/18 08:09 [place] % (Auto) 2.1 % (0.0-7.3) 10/10/18 08:09 Eos % (Auto) 0.0 % (0.0-4.3) 10/10/18 08:09 Baso % (Auto) 0.2 % (0.0-1.8) 10/10/18 08:09 Lymph # 0.6 K/mm3 (1.2-5.4) L 10/10/18 08:09 [place] # 0.2 K/mm3 (0.0-0.8) 10/10/18 08:09 Eos # 0.0 K/mm3 (0.0-0.4) 10/10/18 08:09 Baso # 0.0 K/mm3 (0.0-0.1) 10/10/18 08:09 Seg Neutrophils % 89.7 % (40.0-70.0) H 10/10/18 08:09 Seg Neutrophils # 6.9 K/mm3 (1.8-7.7) 10/10/18 08:09 Sodium 139 mmol/L (137-145) 10/11/18 05:18 Potassium 4.1 mmol/L (3.6-5.0) 10/11/18 05:18 Chloride 106.7 mmol/L (98-107) 10/11/18 05:18 Carbon Dioxide 23 mmol/L (22-30) 10/11/18 05:18 13 mmol/L 10/11/18 05:18 BUN 5 mg/dL (7-17) L 10/11/18 05:18 0.5 mg/dL (0.7-1.2) L 10/11/18 05:18 Estimated GFR > 60 ml/min 10/11/18 05:18 10 % 10/11/18 05:18 Glucose 86 mg/dL (65-100) 10/11/18 05:18 Calcium 8.6 mg/dL (8.4-10.2) 10/11/18 05:18 Magnesium 1.90 mg/dL (1.7-2.3) 10/11/18 05:18 1.10 mg/dL (0.1-1.2) 10/11/18 05:18 0.2 mg/dL (0-0.2) 10/11/18 05:18 0.9 mg/dL 10/11/18 05:18 AST 12 units/L (5-40) 10/11/18 05:18 ALT 8 units/L (7-56) 10/11/18 05:18 64 units/L (35-129) 10/11/18 05:18 6.1 g/dL (6.3-8.2) L 10/11/18 05:18 3.5 g/dL (3.9-5) L 10/11/18 05:18 1.3 % 10/11/18 05:18 54 units/L (13-60) 10/10/18 08:09 HCG, Qual Negative (Negative) 10/09/18 02:00 Yellow (Yellow) 10/09/18 Unknown Slightly-cloudy (Clear) 10/09/18 Unknown 6.0 (5.0-7.0) 10/09/18 Unknown Ur Specific [place] 1.028 (1.003-1.030) 10/09/18 Unknown <15 mg/dl mg/dL (Negative) 10/09/18 Unknown Neg mg/dL (Negative) 10/09/18 Unknown 80 mg/dL (Negative) 10/09/18 Unknown Neg (Negative) 10/09/18 Unknown Neg (Negative) 10/09/18 Unknown Neg (Negative) 10/09/18 Unknown < 2.0 mg/dL (<2.0) 10/09/18 Unknown Ur Leukocyte Esterase Lg (Negative) 10/09/18 Unknown 19.0 /HPF (0.0-6.0) H 10/09/18 Unknown 3.0 /HPF (0.0-6.0) 10/09/18 Unknown U Epithel Cells (Auto) 6.0 /HPF (0-13.0) 10/09/18 Unknown 1+ /HPF (Negative) 10/09/18 Unknown 1+ /HPF 10/09/18 Unknown Active Medications - Current Medications Current Medications: Generic Name Dose Route Start Last Admin Trade Name Freq PRN Reason Stop Dose Admin Acetaminophen 650 mg 10/09/18 21:00 Tylenol PO Q4H PRN Pain MILD(1-3)/Fever >100.5/SHARIF Famotidine 20 mg 10/09/18 22:00 10/10/18 22:10 Pepcid IV 20 mg BID CHARU Administration Hydromorphone HCl 0.5 mg 10/09/18 21:00 Dilaudid IV Q3H PRN Pain , Severe (7-10) Sodium Chloride 1,000 mls @ 150 mls/hr 10/09/18 11:00 10/11/18 01:21 Nacl 0.9% 1000 Ml IV 150 mls/hr DIRECT CHARU Administration Levofloxacin/Dextrose 750 mg in 150 mls @ 100 mls/hr 10/10/18 15:00 10/10/18 14:48 Levaquin 750mg/150ml IV 100 mls/hr Q24HR CHARU Administration Protocol Metronidazole 500 mg in 100 mls @ 100 mls/hr 10/10/18 14:30 10/11/18 05:41 Flagyl 500 Mg/100 Ml IV 100 mls/hr Q8HR CHARU Administration Protocol Ondansetron HCl 4 mg 10/09/18 21:00 Zofran IV Q8H PRN Nausea And Vomiting Sodium Chloride 10 ml 10/09/18 22:00 10/10/18 22:10 Sodium Chloride Flush Syringe 10 Ml IV 10 ml BID CHARU Administration Sodium Chloride 10 ml 10/09/18 21:00 Sodium Chloride Flush Syringe 10 Ml IV PRN PRN LINE FLUSH
[2018-10-11] MEDS: SODIUM CHLORIDE FLUSH SYRINGE 10 ML IV SCH (09:52)
[2018-10-11] MEDS: PEPCID IV SCH (09:52)
[2018-10-11] MEDS: LEVAQUIN 750MG/150ML 750 MG/150 ML BAG IV SCH (09:53)
--- NOTE | 2018-10-11 10:54 | Anesthesia Consultation ---
Anesthesia Consult and Med Hx Date of service: 10/11/18 - Airway Anesthetic Teeth Evaluation: Good ROM Head & Neck: Adequate Mental/Hyoid Distance: Adequate Mallampati Class: Class II Intubation Access Assessment: Good - Pre-Operative Health Status ASA Pre-Surgery Classification: ASA1 Proposed Anesthetic Plan: General - Pulmonary Hx Asthma: Yes (daughter) COPD: No Hx Pneumonia: No - Cardiovascular System Hx Hypertension: No Hx Heart Murmur: Yes (daughter) - Central Nervous System Hx Seizures: No Hx Psychiatric Problems: No - Endocrine Hx Renal Disease: Yes (hx cholecystitis) Hx End Stage Renal Disease: No Hx Hypothyroidism: No Hx Hyperthyroidism: No - Hematic Hx Anemia: No Hx Sickle Cell Disease: No - Other Systems Hx Alcohol Use: No
--- NOTE | 2018-10-11 10:54 | Anesthesia Day of Surgery ---
Anesthesia Day of Surgery - Day of Surgery Patient Examined: Yes Patient H&P Reviewed: Yes Patient is NPO: Yes
[2018-10-11] MEDS ORDERED: SUBLIMAZE IV PRN (10:55)
[2018-10-11] MEDS ORDERED: DILAUDID IV PRN (10:55)
[2018-10-11] MEDS ORDERED: ZOFRAN IV PRN (10:55)
[2018-10-11] MEDS ORDERED: TYLENOL PO ONE (10:56)
[2018-10-11] MEDS ORDERED: NEURONTIN PO NR (11:00)
[2018-10-11] MEDS ORDERED: TRANSDERM-SCOP TD NR (11:00)
[2018-10-11] MEDS ORDERED: LACTATED RINGERS 1,000 ML IV SCH (11:00)
[2018-10-11] MEDS ORDERED: VERSED IV NR (11:00)
[2018-10-11] MEDS ORDERED: XYLOCAINE 1% 20 mL ONE (11:24)
[2018-10-11] MEDS ORDERED: MARCAINE 0.5% INFILTRATI ONE ×2 (11:24→12:32)
[2018-10-11] MEDS ORDERED: XYLOCAINE MPF 2% ONE (11:53)
[2018-10-11] MEDS ORDERED: ZEMURON IV ONE (11:53)
[2018-10-11] MEDS ORDERED: DIPRIVAN 10 MG/ML IV ONE (11:54)
[2018-10-11] MEDS ORDERED: DILAUDID ONE (11:54)
[2018-10-11] MEDS ORDERED: PHENYLEPHRINE/NS Syringe 1,000 MCG/10 ML IV ONE (12:25)
[2018-10-11] MEDS ORDERED: XYLOCAINE 1% 20 mL INFILTRATI ONE (12:33)
[2018-10-11] MEDS ORDERED: NACL 0.9% IR ONE (12:53)
[2018-10-11] MEDS ORDERED: NACL 0.9% 250ML 250 ML ONE (13:28)
[2018-10-11] MEDS ORDERED: NACL 0.9% 250ML IV ONE (13:37)
[2018-10-11] MEDS ORDERED: DECADRON ONE (14:09)
[2018-10-11] MEDS ORDERED: ZOFRAN ONE (14:09)
[2018-10-11] MEDS ORDERED: ROBINUL ONE (14:09)
[2018-10-11] MEDS ORDERED: BRIDION IV ONE (14:17)
[2018-10-11] MEDS ORDERED: PERCOCET 5/325 PO PRN (14:25)
--- NOTE | 2018-10-11 14:25 | Post Operative Note ---
Date of procedure: 10/11/18 Pre-op diagnosis: cholecystitis, gallstone pancreatitis Post-op diagnosis: same Findings: gallbladder with thickened wall, pericholecystic fluid and adhesions to omentum. cholangiogram negative for filling defect. Long dilated cystic duct Procedure: robotic assisted cholecystectomy, cholangiogram Anesthesia: GETA, local Surgeon: BRIANNA RINCON [facility] Front Desk Clerk: ENOCH RODRIGUEZ Estimated blood loss: minimal Pathology: list (gallbladder) Specimen disposition: to lab Condition: stable Disposition: PACU
--- NOTE | 2018-10-11 14:42 | Post Anesthesia Evaluation ---
- Post Anesthesia Evaluation Patient Participated: Yes Airway Patent: Yes Stable Respiratory Function: Yes Nausea/Vomiting: No Temp > 96.8F: Yes Pain Manageable: Yes Adequeate Hydration: Yes Anesthesia Complications: No Block Receding Appropriately: Not Applicable Patient on Ventilator: No
--- NOTE | 2018-10-11 15:22 | Discharge Summary ---
Providers - Providers Date of Admission: 10/09/18 11:11 Date of discharge: 10/11/18 Attending physician: BOB YANSE 10/09/18 11:12 Consult to Physician [CONS] Stat Comment: Consulting Provider: BRIANNA RINCON Physician Instructions: Reason For Exam: acute cholecystitis 10/09/18 17:20 Consult to Physician [CONS] Routine Comment: Consulting Provider: VANCE OLIVER Physician Instructions: Reason For Exam: choledocolithiasis [facility] Reason for admission: Acute gallstone cholecystitis with choledocholithiasis, Acute pancreatitis Condition: Stable Pertinent studies: MRCP: Cholelithiasis with findings suggestive of acute cholecystitis and choledocholithiasis CT ABD/PELVIS: Cholelithiasis and possible acute cholecystitis Abdominal ultrasound: Cholelithiasis with findings suggestive of acute cholecystitis and possible choledocholithiasis Procedures: Robotic assisted cholecystectomy with cholangiogram Hospital course: Final discharge diagnosis: Acute gallstone cholecystitis with choledocholithiasis Acute gallstone pancreatitis Hyperbilirubinemia Hospital course: Patient was admitted and placed on bowel rest, IV fluid, PRN narcotics and IV antibiotic. Thereafter, she underwent cholecystectomy with cholangiogram without any complications. Postprocedure, she was monitored without any adverse events and was later cleared by the surgery for discharge. Of note, she veronica erated her diet prior to discharge. Disposition: - TO HOME OR SELFCARE Time spent for discharge: 38 minutes Core Measure Documentation - Palliative Care Palliative Care/ Comfort Measures: Not Applicable - Core Measures Any of the following diagnoses?: none Exam - Constitutional Vitals: Temp Pulse Resp BP Pulse Ox 97.6 F 68 20 108/61 99 10/11/18 14:32 10/11/18 15:00 10/11/18 15:00 10/11/18 15:00 10/11/18 15:00 General appearance: Present: no acute distress, well-nourished - EENT Eyes: Present: PERRL, EOM intact ENT: hearing intact, clear oral mucosa - Neck Neck: Present: supple, normal ROM - Respiratory Respiratory effort: normal Respiratory: bilateral: CTA - Cardiovascular Rhythm: regular Heart Sounds: Present: S1 & S2. Absent: rub, click - Extremities Extremities: pulses symmetrical, No edema Peripheral Pulses: within normal limits - Abdominal General gastrointestinal: Present: soft, non-tender, non-distended, normal bowel sounds Female genitourinary: Present: deferred - Integumentary Integumentary: Present: clear, warm, dry - Musculoskeletal Musculoskeletal: gait normal, strength equal bilaterally - Psychiatric Psychiatric: appropriate mood/affect, intact judgment & insight - Neurologic Neurologic: CNII-XII intact, moves all extremities Plan Follow up with: BRIANNA RINCON DO [Staff Physician] - 7 Days [facility] ASHLEY OSUNA MD [Primary Care Provider] - 3-5 Days Prescriptions: oxyCODONE /ACETAMINOPHEN [Percocet 5/325 mg] 2 tab PO Q6H PRN #20 tablet PRN Reason: Pain, Moderate (4-6)
--- NOTE | 2018-10-11 16:02 | Fluoroscopy Report ---
FLUOROSCOPY CHOLANGIOGRAM OPERATIVE HISTORY: Cholelithiasis, intraoperative cholangiogram FINDINGS: Fluoroscopy was provided by radiology during intraoperative cholangiogram by Dr. Sheikh. On e fluoroscopic image of the right upper quadrant is presented demonstrating contrast agent throughout the biliary tree and descending duodenum. No filling defect or obvious extravasation is appreciated. Cholecystectomy has been performed. 20 seconds of fluoroscopy time was utilized. These correlate wit h the operative notes as needed. Signer Name: Yefri Morel Jr, MD Signed: 10/11/2018 3:57 PM Workstation Name: [id number]
[2018-10-11 16:10] VITALS: BP 105/70
--- NOTE | 2018-10-11 18:35 | Operative Report ---
PREOPERATIVE DIAGNOSES: Cholecystitis and gallstone pancreatitis. POSTOPERATIVE DIAGNOSES: Cholecystitis and gallstone pancreatitis. FINDINGS: Gallbladder with thickened wall, pericholecystic fluid and adhesions to omentum. Cholangiogram negative for filling defect. There is a long dilated cystic duct. PROCEDURE: Robotic-assisted cholecystectomy, intraoperative cholangiogram. ANESTHESIA: General endotracheal anesthesia, local. SURGEON: Georgie Sheikh DO. MEDICAL STENOGRAPHER SURGEON: Janine Burden MD. ESTIMATED BLOOD LOSS: Minimal. PATHOLOGY: Gallbladder. SPECIMEN DISPOSITION: To lab. CONDITION DISPOSITION: The patient is stable to PACU. HISTORY OF PRESENT ILLNESS AND INDICATION: The patient is a 32-year-old female who presented to the Emergency Room with acute onset abdominal pain. She was found to have a distended and thickened gallbladder on CT scan of the abdomen and pelvis and so an ultrasound was ordered. Ultrasound findings also suggested acute cholecystitis and a dilated common bile duct. MRI of the biliary tree did note an abrupt transition in the caliber of the common bile duct suggesting choledocholithiasis. Laboratory data showed a slightly elevated T bilirubin; however, LFTs were normal and lipase was 1335 on presentation. After aggressive resuscitation and n.p.o., the patient's lipase normalized. She was seen by GI who elected to hold on ERCP after reviewing the MRI with Radiology and suggested intraoperative cholangiogram. I discussed the recommendation for cholecystectomy with the patient along with intraoperative cholangiogram. All risks, benefits, alternatives to surgery were discussed with the patient as well as her over the telephone. All questions were answered and consent obtained. PROCEDURE IN DETAIL: The patient was identified in preoperative area and taken back to the operating room and placed on the operating table in supine position. After anesthesia was induced, the patient was straight cathed as she expressed the need to urinate on the way to the operating room. After this, the right arm was tucked and all bony prominences padded appropriately. The abdomen was then prepped and draped in the usual sterile fashion. A timeout was performed. A local anesthetic was infiltrated into all skin incision sites. A 12-mm incision was made above the umbilicus, through which a Veress needle was inserted. The Veress needle position was confirmed using saline drop test and the abdomen insufflated to 15 mmHg. Once the abdomen was insufflated, the Veress needle was removed and a 12-mm Optiview balloon trocar was placed through this incision. The abdomen was inspected. There was no underlying injury to any of the abdominal structures. The patient was placed in reverse Trendelenburg and tilted to the left. The gallbladder was visualized in the right upper quadrant. There was some simple free fluid in the right upper quadrant. An additional 8-mm left upper quadrant and 2 right-sided abdominal 8-mm robotic trocars were placed under direct visualization. A Ray-Adia was placed into the abdomen and the robot was then docked. A monopolar scissor was placed in arm #1, a cardia grasper in arm #2 and a ProGrasp in arm #3. The surgeon was then moved to the console. The gallbladder fundus was grasped and lifted cephalad and above the liver. There were some adhesions from the omentum to the gallbladder, which were taken down using electrocautery with great care to avoid injury to surrounding structures. Once all of the adhesions were taken down, the gallbladder was retracted further cephalad and over the liver. The gallbladder wall was thickened. We started by dissecting out the cystic duct and artery. The cystic artery was anterior and wrapping over the cystic duct. The artery was dissected out all the way distally until it started branching on the gallbladder. The cystic duct was dissected out very carefully as were the lateral, posterior and medial peritoneal reflections of the gallbladder. Once the critical view was obtained and there were no other structures seen entering the gallbladder, the cystic artery was clipped with 1 clip proximally and 1 distally and it was transected in between the clips by the operations manager assistant surgeon using EndoShears. The additional thickened peritoneal tissue was dissected off of the cystic duct and a clip was placed on the proximal aspect of the cystic duct where it entered the gallbladder. A ductotomy was then created in the cystic duct using EndoShears by the operations manager assistant surgeon. At this point, the robot was undocked in order to facilitate C-arm placement to perform the cholangiogram. The cholangiogram catheter was then inserted into the cystic duct and clamped using an [facility] clamp. This was done laparoscopically. The catheter was flushed using saline and flushed easily and there was no leakage around the catheter. The C-arm was then brought in and the cholangiogram performed in the usual fashion. The dye was injected under fluoroscopy and was seen to fill the cystic duct, the common bile duct, the duodenum, right and left hepatic ducts as well as accessory biliary ducts and the liver immediately. There were no filling defects identified. Once a satisfactory image was obtained, the cholangiogram catheter was removed and the robot was re-docked. The surgeon was transferred back to the console. Three additional clips were placed on the proximal aspect of the cystic duct and the cystic duct was cut in between the clips using EndoShears by the operations manager assistant surgeon. The gallbladder was then dissected off the liver bed using hook electrocautery and placed in the right upper quadrant. The liver bed was checked for hemostasis, which was carefully ensured. The 3 clips on the cystic duct and 1 clip on the cystic artery were identified and in place. There was no bleeding or bile leakage from this area. The robot was then undocked and the patient placed in neutral position. The Ray-Adia was removed from the abdomen. The gallbladder was placed into an EndoCatch bag and removed via the 12-mm port. The 12-mm port fascia was closed with 0 Vicryl interrupted sutures using the Brian-Jevon device. The ports were then all removed under direct visualization and the abdomen desufflated. Skin incisions were once again infiltrated with local anesthetic and the skin was closed using 4-0 Monocryl subcuticular stitches and skin glue. At the end of the case, all sponge, instrument, sharp counts were correct x 2. The patient was awoken from anesthesia, extubated, and taken to PACU in stable condition. JOB# [id number] HILARY/AG
== END 2018-10-11 20:00 | disposition home or self-care (01) ==
LOC: ED 01:32 → 3A 11:11
PROVIDERS: ADMIT Internal Medicine; ATTEND Internal Medicine
DX: K80.00 Calculus of gallbladder with acute cholecystitis without obstruction (principal)
CPT/HCPCS: 36415; 47563; 74176; 74177; 74181; 74300; 76705; 80048; 80053; 80076; 81001; 82247; 82248; 83690; 83735; 84703; 85025; 87086; 88304; 96365; 96366; 96367; 96368; 96375; 96376; G0378; J0696; J1100; J1170; J1956; J2250; J2370; J2405; J2543; J2704; J7030; J7050; Q9967; S2900